=== PATIENT | female | born 1995 | race Hispanic/Latino ===

== ENCOUNTER 2019-01-05 00:56 | Emergency (ER) | payer BC ==
[2019-01-05 01:14] VITALS: BMI 22.6
[2019-01-05 01:16] VITALS: RESP 18
--- NOTE | 2019-01-05 02:19 | ED PDOC ---
Syncope/Near Syncope/Dizziness Time Seen by Provider: 01/05/19 01:44 Chief Complaint (Nursing): Abdominal Pain Chief Complaint (Provider): syncope History Per: Patient Additional Complaint(s): 23 y/o F with hx of migraines and GERD who presents with syncopal episode. Pt states that she was at her baseline this morning and then, this afternoon, felt "not right". She had no appetite and had stomach upset. She went home and had some abdominal discomfort and nausea. She was walking to bathroom when she felt lightheaded and possibly palpitations and then had syncopal episode. Denies fecal or urinary incontinence, head trauma, neck pain, C/P, SOB. Past Medical History Reviewed: Historical Data, Nursing Documentation, Vital Signs Vital Signs: Last Vital Signs Temp 98.1 F 01/05/19 01:14 Pulse 84 01/05/19 01:14 Resp 18 01/05/19 01:14 BP 103/69 01/05/19 01:14 Pulse Ox 99 01/05/19 01:14 - Family History Family History: States: Unknown Family Hx - Allergies Allergies/Adverse Reactions: Allergies Allergy/AdvReac Type Severity Reaction Status Date / Time No Known Allergies Allergy Verified 01/05/19 01:14 Review of Systems Constitutional: Negative for: Fever Cardiovascular: Positive for: Palpitations. Negative for: Chest Pain Respiratory: Negative for: Cough, Shortness of Breath Gastrointestinal: Positive for: Nausea, Abdominal Pain. Negative for: Vomiting, Diarrhea Genitourinary Female: Negative for: Dysuria Physical Exam - Reviewed Nursing Documentation Reviewed: Yes Vital Signs Reviewed: Yes - Physical Exam Appears: Positive for: Non-toxic Head Exam: Positive for: ATRAUMATIC Skin: Positive for: Pallor Eye Exam: Positive for: Normal appearance ENT: Positive for: Normal ENT Inspection Neck: Positive for: Normal Cardiovascular/Chest: Positive for: Regular Rate, Rhythm Respiratory: Positive for: Normal Breath Sounds Gastrointestinal/Abdominal: Positive for: Normal Exam Neurological/Psych: Positive for: Awake, Alert, Symmetric/Intact Strength, Oriented, resistor tester II-XII. Negative for: Facial Droop - Laboratory Results Result Diagrams: 01/05/19 02:37 01/05/19 02:37 - ECG O2 Sat by Pulse Oximetry: 99 Medical Decision Making Medical Decision Making: EKG CBC, CMP Urine preg Urine dip Urine drug screen Serum alcohol Accucheck NS 1L IV x 1 orthostatics telemetry EKG: sinus, HR 72, normal ECG orthostatics: Lying: BP: 101/56 HR 73; sittin/58 HR 82; standin/66 HR 101 Urine drug screen and urine preg negative. Accucheck and random glucose elevated. Disposition - Clinical Impression Clinical Impression: Vasovagal syncope - Patient ED Disposition Is Patient to be Admitted: No Counseled Patient/Family Regarding: Diagnosis, Need For Followup, Rx Given - Disposition Disposition: Routine/Home Disposition Time: 04:58 Condition: STABLE Additional Instructions: Follow up with your primary care provider for check up. Return to ER if you have recurrent fainting episodes or worsening symptoms. Stay hydrated and rest. Instructions: Syncope (Fainting) (DC), Vasovagal Response (DC) Forms: [facility] (Kazakh) Print Language: LIBYAN
[2019-01-05 02:45] LABS: BARBITURATES, UR NEGATIVE (NEGATIVE); BENZODIAZEPINES, UR NEGATIVE (NEGATIVE); OPIATES, UR NEGATIVE (NEGATIVE); PHENCYCLIDINE, UR NEGATIVE (NEGATIVE)
[2019-01-05 02:49] LABS: BASO % 0.2 % (0.0-2.0); EOS # 0.1 K/uL (0.0-0.7); EOS % 0.6 % (0.0-4.0); HEMOGLOBIN 13.3 g/dL (12.0-16.0); LYMPH # 0.3 K/uL (1.0-4.3); LYMPH % 3.1 % (20.0-40.0); MEAN CELL VOLUME 89.8 fl (81.0-99.0); MEAN CORPUSCULAR HEMOGLOBIN 30.2 pg (27.0-31.0); MEAN CORPUSCULAR HGB CONC 33.7 g/dL (33.0-37.0); MEAN PLATELET VOLUME 8.8 fl (7.2-11.7); MONO # 0.5 K/uL (0.0-0.8); MONO % 6.2 % (0.0-10.0); NEUT # 7.6 K/uL (1.8-7.0); NEUT % 89.9 % (50.0-75.0); PLATELET COUNT 160 K/uL (130-400); RBC 4.41 Mil/uL (3.80-5.20); RED CELL DISTRIBUTION WIDTH 13.4 % (11.5-14.5); WHITE BLOOD COUNT 8.4 K/uL (4.8-10.8)
[2019-01-05 02:58] LABS: ALB/GLOB RATIO 1.6 (1.0-2.1); ALBUMIN 3.9 g/dL (3.5-5.0); ALT/SGPT 28 U/L (9-52); AST/SGOT 22 U/L (14-36); BLOOD UREA NITROGEN 16 mg/dl (7-17); CALCIUM 9.3 mg/dL (8.4-10.2); GFR NON-AFRICAN AMERICAN > 60
[2019-01-05] MEDS: Sodium Chloride 0.9% 1,000 ML IV SCH ×3 (03:31→04:27)
[2019-01-05 04:27] LABS: BANDS 1 % (0-2); LYMPHOCYTE 4 % (20-50); MONOCYTE 8 % (0-10); NEUTROPHIL 87 % (42-75); TOTAL CELLS COUNTED 100
[2019-01-05 04:28] LABS: PLATELET ESTIMATE NORMAL (NORMAL)
[2019-01-05 04:59] VITALS: BP 99/55; PULSE 68; TEMP 99.4
[2019-01-05 06:02] VITALS: O2SAT 99
--- NOTE | 2019-01-05 08:41 | CARD ---
APPROVED REPORT Date of service: 01/05/2019 EKG Measurement Heart [id number] <Conclusion> Normal sinus rhythm Normal ECG
== END 2019-01-05 04:58 | disposition home or self-care (01) ==
LOC: H.ER 00:56
DX: R55 Syncope and collapse (principal)
CPT/HCPCS: 80053; 81025; 82948; 85025; 86850; 86900; 93005; 99284; G0480; J7030